=== PATIENT | female | born 1955 | race American Indian/Alaskan Native ===

== ENCOUNTER 2016-03-20 13:25 | Outpatient (CLI) | payer OTHER ==
--- NOTE | 2016-03-20 15:29 | Mammography Report ---
BILATERAL DIGITAL DIAGNOSTIC MAMMOGRAM with CAD and LEFT BREAST ULTRASOUND: 03/20/16 13:25:00 CLINICAL: Left palpable breast mass. COMPARISON:None. FINDINGS: The breasts are heterogeneously dense, which may obscure small masses. A spiculated upper inner mass correlates with the palpable lump and measures approximately 1.8 cm maximum diameter.No suspicious calcifications. The right breast is negative. Ultrasound of the left breast (including all four quadrants and the retroareolar area) was performed and demonstrated a solid heterogeneous hypoechoic mass at 12 o'clock 2 cm from the nipple. It corresponds to the mammographic mass and measures approximately 1.9 x 1.6 x 1.5 cm. A benign cyst at 7 o'clock measures 7 mm. Ultrasound of the left axilla demonstrated a single lymph node with central fat a benign morphology measuring 1.0 x 0.7 cm. No suspicious lymph nodes. IMPRESSION: A highly suspicious 1.9 cm left breast mass at 12 o'clock. BI-RADS CATEGORY: 5 - - Highly Suggestive of Malignancy RECOMMENDATION: Ultrasound guided needle core biopsy of the left breast. I discussed the findings and the recommendation for needle core biopsy with the patient at the time of the examination. ACR BI-RADS MAMMOGRAPHIC CODES: 0 = Needs additional imaging evaluation; 1 = Negative; 2 = Benign; 3 = Probably benign; 4 = Suspicious; 5 = Malignant; 6 = Known biopsy-proven malignancy COMMENT: 1. Dense breast tissue, i.e., adenosis, fibrocystic changes, etc., may obscure an underlying neoplasm. 2. Approximately 10% of cancers are not detected with mammography. 3. A negative mammography report should not delay biopsy if a clinically suspicious mass is present. COMMENT: Patient follow-up letters are generated by our [employer] application.
== END 2016-03-20 13:26 | disposition home or self-care (01) ==
LOC: MAMMO 13:25
PROVIDERS: ATTEND Family Medicine Adult Medicine
DX: N63 Unspecified lump in breast (principal)
CPT/HCPCS: 76641; G0204; 77066

== ENCOUNTER 2016-04-03 08:09 | Outpatient (CLI) | payer OTHER ==
--- NOTE | 2016-04-03 09:53 | History and Physical Report ---
History of Present Illness Date of examination: 04/03/16 Chief complaint: lt. breast mass Medications and Allergies Allergies Allergy/AdvReac Type Severity Reaction Status Date / Time No Known Allergies Allergy Unverified 03/20/16 13:26
--- NOTE | 2016-04-03 09:54 | Procedure Note ---
Date of procedure: 04/03/16 Pre-op diagnosis: lt. breast mass Post-op diagnosis: same Procedure: u/s guided bx Findings: solid tissue Anesthesia: local Surgeon: URI MCMAHAN Estimated blood loss: minimal Pathology: list (lt breast tissue) Specimen disposition: to lab Condition: stable Disposition: same day
--- NOTE | 2016-04-03 10:31 | Ultrasound Report ---
Ultrasound-guided left breast biopsy, marker placement, left mammogram: The patient presents with a mass in the superior left breast. A lateral approach was utilized. The skin was cleansed and 1% lidocaine used for local anesthesia. A 13-gauge sheath was introduced through which a 14-gauge disposable barred biopsy spring-loaded gun was used to take several samples through the lesion under ultrasound guidance. A marker was then left in place. A small amount of bleeding occurred which was controlled with hand compression. I did have some difficulty completely anesthetizing the area and the patient did have some discomfort during the procedure. A followup mammogram confirm positioning of the marker at the margin of the lesion. No significant hemorrhage noted. The patient was given followup instructions and discharged with mild discomfort in the breast.
--- NOTE | 2016-04-05 13:50 | Mammography Report ---
ULTRASOUND-GUIDED LEFT BREAST BIOPSY, MARKER PLACEMENT, LEFT MAMMOGRAM: The patient presents with a mass in the superior left breast. A lateral approach was utilized. The skin was cleansed and 1% lidocaine used for local anesthesia. A 13-gauge sheath was introduced through which a 14-gauge disposable Bard biopsy spring-loaded gun was used to take several samples through the lesion under ultrasound guidance. A marker was then left in place. A small amount of bleeding occurred which was controlled with hand compression. I did have some difficulty completely anesthetizing the area and the patient did have some discomfort during the procedure. A follow-up mammogram confirmed positioning of the marker at the margin of the lesion. No significant hemorrhage noted. The patient was given follow-up instructions and discharged with mild discomfort in the breast.
== END 2016-04-03 08:10 | disposition home or self-care (01) ==
LOC: US 08:09
PROVIDERS: ATTEND Family Medicine Adult Medicine
DX: N63 Unspecified lump in breast (principal); R92.8 Other abnormal and inconclusive findings on diagnostic imaging of breast
CPT/HCPCS: 19083; 88305; G0206; 88361